=== PATIENT | female | born 1960 | race Two or more races ===

== ENCOUNTER 2017-04-03 09:06 | Outpatient (CLI) | payer OTHER | END 2017-04-03 09:25 | disposition home or self-care (01) | LOC: RAD 501 09:06 | DX: M25.561 Pain in right knee (principal) ==

== ENCOUNTER 2017-07-10 09:02 | Outpatient (CLI) | payer OTHER | END 2017-07-10 16:48 | disposition home or self-care (01) | LOC: RAD 501 09:02 | DX: M25.562 Pain in left knee (principal) ==

== ENCOUNTER 2017-08-09 11:47 | Outpatient (CLI) | payer OTHER | END 2017-08-09 11:53 | disposition home or self-care (01) | LOC: MAMO-SONO 11:47 | DX: Z12.31 Encounter for screening mammogram for malignant neoplasm of breast (principal); N60.11 Diffuse cystic mastopathy of right breast; N60.12 Diffuse cystic mastopathy of left breast ==

== ENCOUNTER 2017-11-04 14:53 | Outpatient (CLI) | payer OTHER | END 2017-11-04 15:54 | disposition home or self-care (01) | LOC: RAD 501 14:53 | DX: M25.521 Pain in right elbow (principal) ==

== ENCOUNTER 2018-08-13 09:47 | Outpatient (CLI) | payer OTHER | END 2018-08-13 10:12 | disposition home or self-care (01) | LOC: MAMO-SONO 09:47 | DX: N60.12 Diffuse cystic mastopathy of left breast (principal); N60.11 Diffuse cystic mastopathy of right breast; Z12.31 Encounter for screening mammogram for malignant neoplasm of breast ==

== ENCOUNTER 2018-11-13 07:43 | Day surgery (SDC) | payer OTHER ==
[~2018-11-13 07:43] MED LIST: CRESTOR20 MG PO
== END 2018-11-13 11:15 | disposition home or self-care (01) ==
LOC: CIR.AMB 07:43
DX: M77.11 Lateral epicondylitis, right elbow (principal); M65.221 Calcific tendinitis, right upper arm

== ENCOUNTER 2021-11-13 13:40 | Outpatient (CLI) | payer OTHER | END 2021-11-13 13:53 | disposition home or self-care (01) | LOC: MAMO-SONO 13:40 | DX: Z12.31 Encounter for screening mammogram for malignant neoplasm of breast (principal); N60.21 Fibroadenosis of right breast; N60.22 Fibroadenosis of left breast ==

== ENCOUNTER 2024-11-04 08:25 | Outpatient (CLI) | payer OTHER | END 2024-11-04 08:35 | disposition home or self-care (01) | LOC: RAD 08:25 | PROVIDERS: ATTEND Physical Medicine & Rehabilitation | DX: M79.671 Pain in right foot (principal) ==

== ENCOUNTER 2025-02-11 08:31 | Outpatient (CLI) | payer OTHER | END 2025-02-11 08:41 | disposition home or self-care (01) | LOC: MAMO-SONO 08:31 | DX: N64.4 Mastodynia (principal); Z00.00 Encounter for general adult medical examination without abnormal findings; Z00.8 Encounter for other general examination; Z13.30 Encounter for screening examination for mental health and behavioral disorders, unspecified; Z13.31 Encounter for screening for depression; Z13.1 Encounter for screening for diabetes mellitus; Z13.89 Encounter for screening for other disorder; Z13.220 Encounter for screening for lipoid disorders ==